=== PATIENT | female | born 1965 | race Hispanic/Latino ===

== ENCOUNTER → 2023-02-08 | Outpatient (CLI) | payer SELFPAY | END | disposition home or self-care (01) | LOC: RAH 08:22 | PROVIDERS: ATTEND Physician Assistant Medical | DX: Z13.6 Encounter for screening for cardiovascular disorders (principal) | CPT/HCPCS: 75571 ==

== ENCOUNTER 2025-03-18 23:19 | Emergency (ER) | payer BC, SELFPAY ==
[~2025-03-18] VITALS: Ht 160 cm; Wt 83.0 kg
--- NOTE | 2025-03-18 23:53 | ERN ---
ED Note History of Present Illness Stated Complaint: C/O HIGH B/P, SOB,CHEST PRESSURE Chief Complaint: Hypertension Time Seen by MD: 23:26 Dictation: This is a pleasant 59-year-old female who came into the ER with her spouse stating that she did not feel well today with the chest pressure and a sensation that she needed to burp. She stated that they drove 7 hours today and as soon as they arrived she checked her blood pressure which was 189 to 190 systolic and she came into the ER for further evaluation. She is currently not on any antihypertensives. When asked to verify chest pain she denied any chest pain but felt bloated in the upper abdomen and she could not catch the breath. No history of any CO. No palpitations diaphoresis or syncope or presyncope. She gives me a history of gastroesophageal reflux symptoms. Temperature 97.9 pulse 68 respirations 20 blood pressure 189/96 with a pulse oximetry of 100% on room air Allergies: Coded Allergies: No Known Allergies (Unverified Allergy, Unknown, 03/18/25) Past Medical History Past Medical History: No Pertinent History, Other Surgical History: None Family History: Negative Social History: Negative History: Not Applicable RN Note Reviewed/Agreed w/PFSH: Yes Review of System Dictation Constitutional: Negative for fever,chills, and weight loss Eyes: Negative for injury, pain,redness, and discharge ENT: Negative for injury,pain or swelling Cardiovascular: Positive for chest pressure, denied palpitations, and edema Respiratory: Positive for shortness of breath, cough, and wheezing, Abdomen/GI: Negative for abdominal pain, nausea, vomiting, diarrhea, and constipation positive for reflux symptoms Back: Negative for injury and pain : Negative for injury, bleeding and discharge MS/Extremity: Negative for injury and deformity Skin: Negative for rash, and discoloration Neuro: Negative for headache, weakness, numbness, tingling, and seizure Psych: Negative for suicide ideation, homicidal ideation, and hallucinations Initial Vital Sign VS Vital Signs Date Time Temp Pulse Resp B/P (MAP) Pulse Ox O2 Delivery O2 Flow Rate FiO2 03/18/25 23:22 97.9 68 20 189/96 100 Room Air 03/18/25 23:43 0 21 Physical Exam Dictation General: awake, alert, NAD Head/Face: Normocephalic, atraumatic Eyes: PERRL, EOMI, vision at baseline ENT: oral cavity clear, TMs clear, no signs of infection Neck: Trachea midline, supple, no nuchal rigidity Cardiovascular: RRR, normal S1/S2, No MRGs, no JVD Respiratory: CTAB, no respiratory distress, No rales or wheezes Abdomen: Soft, non-tender, non-distended, normal bowel sounds, no guarding or rebound. Skin: Warm, dry, normal turgor, no rash MS/Extremity: Pulses equal, no cyanosis, neurovascular intact, FROM Neuro: COAx4, GCS 15, strength 5/5, CN 2-12 intact, normal cerebellar exam, normal gait, Psych: Normal behavior, mood, and affect normal Extremities-trace edema without any palpable cords, Homans sign is negative Results (Laboratory/Radiology) Laboratory/Radiology Laboratory Tests Test 03/19/25 00:01 03/19/25 00:21 Urine Color COLORLESS (YELLOW) Urine Appearance CLEAR (CLEAR) Urine pH 6.0 (5.0-8.0) Urine Specific [place] 1.004 (1.001-1.031) Urine Protein NEGATIVE mg/dL (NEGATIVE) Urine Glucose (UA) NEGATIVE mg/dL (NEGATIVE) Urine Ketones NEGATIVE mg/dL (NEGATIVE) Urine Occult Blood NEGATIVE (NEGATIVE) Urine Nitrate NEGATIVE (NEGATIVE) Urine Bilirubin NEGATIVE mg/dL (NEGATIVE) Urine Urobilinogen 0.2 mg/dL (0.2-1.0) Urine Leukocyte Esterase NEGATIVE [place]/uL White Blood Count 10.0 K/uL (4.8-10.8) Red Blood Count 4.17 MIL/uL (4.00-5.50) Hemoglobin 12.1 g/dL (12.0-16.0) Hematocrit 37.6 % (36-48) Mean Corpuscular Volume 90.2 fL (79-99) Mean Corpuscular Hemoglobin 29.0 pg (27.0-33.0) Mean Corpuscular Hemoglobin Concent 32.2 g/dL (32.0-36.0) Red Cell Distribution Width 14.6 % (11.0-15.5) Platelet Count 446 K/uL (130-400) H Mean Platelet Volume 10.1 fL (7.5-10.5) Immature Granulocyte % (Auto) 0.5 % (0-1) Neutrophils (%) (Auto) 64.6 % (40.0-77.0) Lymphocytes (%) (Auto) 23.7 % (21.0-51.0) Monocytes (%) (Auto) 7.4 % (3.0-13.0) Eosinophils (%) (Auto) 3.0 % (0.0-8.0) Basophils (%) (Auto) 0.8 % (0.0-5.0) Neutrophils # (Auto) 6.5 K/uL (1.8-7.7) Lymphocytes # (Auto) 2.4 K/uL (1.0-4.8) Monocytes # (Auto) 0.7 K/uL (0.1-1.0) Eosinophils # (Auto) 0.30 K/uL (0.00-0.70) Basophils # (Auto) 0.08 K/uL (0.00-0.20) Absolute Immature Granulocyte (auto 0.05 K/uL (0-1) Nucleated Red Blood Cells 0.0 % (0.0-0.19) Sodium Level 141 mmol/L (136-145) Potassium Level 4.4 mmol/L (3.5-5.1) Chloride Level 104 mmol/L (101-111) Carbon Dioxide Level 29 mmol/L (21-32) Blood Urea Nitrogen 13 mg/dL (7-18) Creatinine 0.6 mg/dL (0.5-1.0) Glomerular Filtration Rate Calc 102 mL/min (>90) Random Glucose 112 mg/dL (70-105) H Total Calcium 9.2 mg/dL (8.5-10.1) Total Creatine Kinase 49 U/L (21-232) Troponin I High Sensitivity 4.3 ng/L (4-50) Labs Reviewed?: Yes X-RAY Comment: REASON: chest pressure HTN ORDERING PHYSICIAN: JODI AMATO MD PROCEDURE: CXR1VW - CHEST 1VW EXAM: CR Chest, 1 View. CLINICAL HISTORY: Chest pressure HTN COMPARISON: None provided. FINDINGS: LUNGS: There is no mass, infiltrate, or acute pulmonary abnormality. PLEURAL SPACES: No evidence of pleural effusion or pneumothorax. MEDIASTINUM: The cardiomediastinal silhouette is within normal limits. BONES: No aggressively appearing osseous lesion seen. IMPRESSION: No acute cardiopulmonary pathology is evident. /[place] DICTATED BY: KATHY MYERS Jr., MD DATE: 03/19/25145 ELECTRONICALLY SIGNED BY: KATHY MYERS Jr., MD DATE: 03/19/25145 CT Scan Comment: REASON: [facility] ORDERING PHYSICIAN: ANTOINE TERRY [facility] S[facility] PROMOTIONAL CT CORONARY CALCIFICATION SCORING: Anatomic images were reviewed. The calcium score is being generated and reported separately. This report is for the visualized anatomy only. Visualized portions of the lungs are clear. Hilar and mediastinal structures appear normal. Osseous structures are unremarkable. Impression: 1. Negative noncardiac anatomic findings. 2. The calcium score is 0 consistent with absence of calcified plaque. CT was performed with one or more following dose reduction techniques: automated exposure control, adjustment of the mA and kv according to patient's size, or use of a iterative reconstruction technique. DICTATED BY: TAYLOR FRIAS MD DATE: 02/08/23 1059 ELECTRONICALLY SIGNED BY: TAYLOR FRIAS MD DATE: 02/08/23 1102 ED Course ED Course Orders Procedure Category Date Status Time 12 Lead Ekg Tracing- EKG 03/18/25 Complete Technical 23:30 Cbc With Differential LAB 03/18/25 Complete 23:49 Chest 1vw RAD 03/18/25 Resulted 23:49 0.9%Nacl 1000ml (Ns PHA 03/19/25 Complete 1000ml) 00:00 Nitroglycerin 0.4mg PHA 03/19/25 Complete Sl Tab (Nitrostat) 00:00 Aspirin 325mg Tab PHA 03/19/25 Complete (Aspirin 325mg Tab) 00:00 Urinalysis Profile LAB 03/18/25 Complete 23:49 Basic Metabolic Panel LAB 03/18/25 Complete 23:49 Cardiac Panel LAB 03/19/25 Complete 00:21 Current Medications Medications (Trade) Dose Ordered Sig/Pamela Route PRN Reason Start Time Stop Time Status Last Admin Dose Admin Aspirin (Aspirin 325mg Tab) 325 mg ONCE ONCE PO 03/19/25 00:00 03/19/25 00:01 DC Nitroglycerin (Nitrostat) 0.4 mg Q5M PRN SL CHEST PAIN 03/19/25 00:00 03/19/25 01:58 DC Sodium Chloride 1,000 ml @ 125 mls/hr ONCE ONCE IV 03/19/25 00:00 03/19/25 01:58 DC 03/19/25 00:24 Vital Signs Date Time Temp Pulse Resp B/P (MAP) Pulse Ox O2 Delivery O2 Flow Rate FiO2 03/19/25 01:57 97.9 72 17 141/88 98 Room Air* 0 21 03/18/25 23:43 97.9 68 18 153/79 98 Room Air* 0 21 03/18/25 23:22 97.9 68 20 189/96 100 Room Air HEART Score Response (Comments) Value History: Low suspicion (0) 0 EKG: Normal 0 Age: 45-65yrs (+1) 1 Risk Factors: No known risk factors (0) 0 Initial Troponin: Normal limit (0) 0 HEART Score Risk: Low Risk for MACE (1-3) Total 1 Medical Decision Making MDM Differential diagnosis: Angina, ACS, Esophagitis, gastroesophageal reflux disease, hiatal hernia, gastritis, pericarditis, costochondritis, pleurisy This is a pleasant 59-year-old female who came into the ER with her spouse stating that she did not feel well today with the chest pressure and a sensation that she needed to burp. She stated that they drove 7 hours today and as soon as they arrived she checked her blood pressure which was 189 to 190 systolic and she came into the ER for further evaluation. She is currently not on any antihypertensives. When asked to verify chest pain she denied any chest pain but felt bloated in the upper abdomen and she could not catch the breath. No history of any CO. No palpitations diaphoresis or syncope or presyncope. She gives me a history of gastroesophageal reflux symptoms. Temperature 97.9 pulse 68 respirations 20 blood pressure 189/96 with a pulse oximetry of 100% on room air 12:48 a.m. labs reviewed CBC is normal, BNP 7 is with a normal limits., troponins negative. And urinalysis is unremarkable. EKG and chest x-ray were unremarkable. I updated the patient and spouse on all the lab results and my suspicion that this was per perhaps GI related. She felt significantly improved Blood pressure was also much better. I counseled her extensively on her locking her blood pressure twice a day and following up with her primary care physician to see if she needs an antihypertensive. Weight loss diet and exercise. Rationale: Tests considered and ordered secondary to shared decision making include: Previous outside records reviewed: Old ER visits. Risk of complication and/or morbidity or mortality of patient management: None Medications-Per medication reconciliation Need for hospitalization: Patient does not meet criteria for hospitalization. Need for emergency major/minor surgery: No There are no social concerns with this patient. Prescription drug management Prescriptions will include symptomatic care Patient's prior external medical records from other ER visits were reviewed by me as indicated. Prior testing and results from previous visits were reviewed. Prior tests were taken into account with medical decision making and resource utilization, independent historian/historians were used to obtain complete medical history. I independently interpreted the test that were performed, results were reviewed by me and considered findings on radiology if ordered. Medical management and examination interpretation discussions were had by me with other qualified healthcare professionals as indicated for the patient's care. Problem List Problem List: (1) Uncontrolled hypertension (2) Atypical chest pain (3) GERD (gastroesophageal reflux disease) DX & DISP Disposition: Discharge Departure Impression: Primary Impression: Uncontrolled hypertension Additional Impressions: Atypical chest pain, GERD (gastroesophageal reflux disease) Condition: Stable Additional Instructions: Patient and the caregiver have been informed of all the diagnostic tests and the imaging conducted during the today's visit to the emergency room and has verbalized understanding of the results I have personally reviewed and interpreted all diagnostic exams performed here in the ER today as well as the vital signs documented by the nursing staff. The patient is now being discharged to home and should follow up with the primary care physician or the specialist as directed by the ER staff. Referrals: ANTOINE TERRY (PCP) JODI AMATO MD Mar 18, 2025 23:53
[2025-03-19] MEDS ORDERED: NITROGLYCERIN 0.4 MG SL TAB SL PRN
[2025-03-19] MEDS: ASPIRIN 325MG TAB PO ONE (00:04)
[2025-03-19 00:15] LABS: APPEARANCE,URINE CLEAR (CLEAR); GLUCOSE, URINE (UA) NEGATIVE (NEGATIVE); LEUKOCYTE ESTERASE ,URINE NEGATIVE Leu/uL (NEGATIVE); NITRATE,URINE NEGATIVE (NEGATIVE); OCCULT BLOOD,URINE NEGATIVE (NEGATIVE)
[2025-03-19 00:18] LABS: ADD UA MICROSCOPIC NO
[2025-03-19] MEDS: 0.9%NACL 1000ML 1,000 ML IV ONE (00:24)
[2025-03-19 00:36] LABS: CREATININE 0.6 mg/dL (0.5-1.0); GLOMERULAR FILTR. RATE CALC 102.0 mL/min (>90); GLUCOSE,RANDOM 112.0 mg/dL (70-105); SODIUM SERUM 141.0 mmol/L (136-145); UREA NITROGEN, BLOOD 13.0 mg/dL (7-18)
[2025-03-19 00:39] LABS: IMMATURE GRANULOCYTE ABSOLUTE 0.05 K/uL (0-1); NUCLEATED RED BLOOD CELLS 0.0 % (0.0-0.19); PLATELET COUNT (AUTO) 446 K/uL (130-400); RED BLOOD CELL COUNT(AUTO) 4.17 MIL/uL (4.00-5.50); RED CELL DISTRIBUTION WIDTH 14.6 % (11.0-15.5); WHITE BLOOD COUNT (AUTO) 10.0 K/uL (4.8-10.8)
[2025-03-19 00:44] LABS: CREATINE KINASE, TOTAL 49.0 U/L (21-232)
--- NOTE | 2025-03-19 00:47 | HMCIMG ---
EXAM: CR Chest, 1 View. CLINICAL HISTORY: Chest pressure HTN COMPARISON: None provided. FINDINGS: LUNGS: There is no mass, infiltrate, or acute pulmonary abnormality. PLEURAL SPACES: No evidence of pleural effusion or pneumothorax. MEDIASTINUM: The cardiomediastinal silhouette is within normal limits. BONES: No aggressively appearing osseous lesion seen. IMPRESSION: No acute cardiopulmonary pathology is evident. /[place]
[2025-03-19 01:57] VITALS: BP 141/88; PULSE 72; RESP 17; TEMP 97.8; O2SAT 98
--- NOTE | 2025-03-19 07:02 | EKG ---
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
== END 2025-03-19 01:58 | disposition home or self-care (01) ==
LOC: EDH 23:19
DX: K21.9 Gastro-esophageal reflux disease without esophagitis (principal); I10 Essential (primary) hypertension; R07.89 Other chest pain
CPT/HCPCS: 99284; 71045; 82550; 84484; 80048; 85025; 81003; 36415; 93005; J7030